=== PATIENT | female | born 1945 | race Caucasian/White ===

== ENCOUNTER → 2019-05-12 15:31 | Outpatient (BNVA) | payer MEDICARE, OTHER, SELFPAY | PROVIDERS: Family Provider Family Medicine; PCP Family Medicine; Visit Provider Internal Medicine Rheumatology | DX: M35.3 Polymyalgia rheumatica (principal); Z79.899 Other long term (current) drug therapy; Z11.59 Encounter for screening for other viral diseases; M19.90 Unspecified osteoarthritis, unspecified site; M05.9 Rheumatoid arthritis with rheumatoid factor, unspecified; R76.8 Other specified abnormal immunological findings in serum | CPT/HCPCS: 36415; 82306; 86704; 86803; 87340; 99214 ==

== ENCOUNTER → 2019-06-17 12:50 | Outpatient (BNVA) | payer MEDICARE, OTHER, SELFPAY | PROVIDERS: Family Provider Family Medicine; PCP Family Medicine; Visit Provider Internal Medicine Rheumatology | DX: Z79.899 Other long term (current) drug therapy (principal); M19.90 Unspecified osteoarthritis, unspecified site | CPT/HCPCS: 36415; 80076; 82565; 85025; 85651; 86140 ==

== ENCOUNTER → 2019-06-17 13:03 | Outpatient (BNVA) | payer MEDICARE, OTHER, SELFPAY | PROVIDERS: Family Provider Family Medicine; PCP Family Medicine | DX: Z79.899 Other long term (current) drug therapy (principal); M19.90 Unspecified osteoarthritis, unspecified site | CPT/HCPCS: 85025 ==

== ENCOUNTER → 2019-08-18 13:01 | Outpatient (BNVA) | payer MEDICARE, OTHER, SELFPAY | PROVIDERS: Family Provider Family Medicine; PCP Family Medicine; Visit Provider Internal Medicine Rheumatology | DX: M35.3 Polymyalgia rheumatica (principal); Z79.899 Other long term (current) drug therapy; Z79.52 Long term (current) use of systemic steroids; M25.50 Pain in unspecified joint | CPT/HCPCS: 36415; 80076; 82565; 85025; 85651; 86140; 99214 ==

== ENCOUNTER → 2020-01-21 14:15 | Outpatient (BNVA) | payer MEDICARE, OTHER, SELFPAY | PROVIDERS: Family Provider Family Medicine; PCP Family Medicine; Visit Provider Internal Medicine Rheumatology | DX: M35.3 Polymyalgia rheumatica (principal); Z79.899 Other long term (current) drug therapy; R76.8 Other specified abnormal immunological findings in serum; M06.09 Rheumatoid arthritis without rheumatoid factor, multiple sites | CPT/HCPCS: 99214 ==

== ENCOUNTER → 2020-02-19 10:09 | Outpatient (BNVA) | payer MEDICARE, OTHER, SELFPAY | PROVIDERS: Family Provider Family Medicine; PCP Family Medicine; Visit Provider Internal Medicine Rheumatology | DX: Z79.899 Other long term (current) drug therapy (principal) | CPT/HCPCS: 36415; 80076; 82565; 86140 ==

== ENCOUNTER 2021-03-01 09:43 | Outpatient (CLI) | payer MEDICARE, OTHER, SELFPAY | END 2021-03-01 09:44 | disposition home or self-care (01) | LOC: WOUND 09:45 | PROVIDERS: Family Provider Family Medicine; PCP Family Medicine; Visit Provider Nurse Practitioner Family | DX: I96 Gangrene, not elsewhere classified (principal); L97.812 Non-pressure chronic ulcer of other part of right lower leg with fat layer exposed; Z87.891 Personal history of nicotine dependence; M06.9 Rheumatoid arthritis, unspecified; I10 Essential (primary) hypertension | CPT/HCPCS: 11042; G0463 ==

== ENCOUNTER 2021-03-08 13:19 | Outpatient (RCR) | payer MEDICARE, OTHER, SELFPAY | END 2021-04-07 23:59 | disposition home or self-care (01) | LOC: WOUND 13:19 | PROVIDERS: Family Provider Family Medicine; PCP Family Medicine; Visit Provider Nurse Practitioner Family | DX: T81.89XA Other complications of procedures, not elsewhere classified, initial encounter (principal); Y83.8 Other surgical procedures as the cause of abnormal reaction of the patient, or of later complication, without mention of misadventure at the time of the procedure; I10 Essential (primary) hypertension; M06.9 Rheumatoid arthritis, unspecified; Z87.891 Personal history of nicotine dependence | CPT/HCPCS: 11042 ==

== ENCOUNTER 2021-03-15 14:14 | Outpatient (CLI) | payer MEDICARE, OTHER, SELFPAY | END 2021-03-15 14:15 | disposition home or self-care (01) | LOC: WOUND 14:15 | PROVIDERS: Family Provider Family Medicine; PCP Family Medicine; Visit Provider Thoracic Surgery (Cardiothoracic Vascular Surgery) | DX: I96 Gangrene, not elsewhere classified (principal); L97.812 Non-pressure chronic ulcer of other part of right lower leg with fat layer exposed; Z87.891 Personal history of nicotine dependence | CPT/HCPCS: 11043 ==

== ENCOUNTER 2021-03-22 10:53 | Outpatient (CLI) | payer MEDICARE, OTHER, SELFPAY | END 2021-03-22 10:54 | disposition home or self-care (01) | LOC: WOUND 10:54 | PROVIDERS: Family Provider Family Medicine; PCP Family Medicine; Visit Provider Thoracic Surgery (Cardiothoracic Vascular Surgery) | DX: I96 Gangrene, not elsewhere classified (principal); L97.812 Non-pressure chronic ulcer of other part of right lower leg with fat layer exposed | CPT/HCPCS: 11043 ==

== ENCOUNTER 2021-03-28 14:31 | Outpatient (CLI) | payer MEDICARE, OTHER, SELFPAY | END 2021-03-28 14:32 | disposition home or self-care (01) | LOC: WOUND 14:32 | PROVIDERS: Family Provider Family Medicine; PCP Family Medicine; Visit Provider Nurse Practitioner Family | DX: Y83.8 Other surgical procedures as the cause of abnormal reaction of the patient, or of later complication, without mention of misadventure at the time of the procedure; Z87.891 Personal history of nicotine dependence; I10 Essential (primary) hypertension; T81.31XA Disruption of external operation (surgical) wound, not elsewhere classified, initial encounter | CPT/HCPCS: 11042; A6212 ==

== ENCOUNTER 2021-04-10 13:36 | Outpatient (CLI) | payer MEDICARE, OTHER, SELFPAY | END 2021-04-10 13:37 | disposition home or self-care (01) | LOC: WOUND 13:37 | PROVIDERS: Family Provider Family Medicine; PCP Family Medicine; Visit Provider Thoracic Surgery (Cardiothoracic Vascular Surgery) | DX: I96 Gangrene, not elsewhere classified (principal); S80.811A Abrasion, right lower leg, initial encounter; X58.XXXA Exposure to other specified factors, initial encounter; Z87.891 Personal history of nicotine dependence | CPT/HCPCS: 97597; A6212 ==

== ENCOUNTER 2021-04-17 10:52 | Outpatient (CLI) | payer MEDICARE, OTHER, SELFPAY | END 2021-04-17 10:53 | disposition home or self-care (01) | LOC: WOUND 10:59 | PROVIDERS: Family Provider Family Medicine; PCP Family Medicine; Visit Provider Thoracic Surgery (Cardiothoracic Vascular Surgery) | DX: T86.829 Unspecified complication of skin graft (allograft) (autograft) (principal); X58.XXXA Exposure to other specified factors, initial encounter; I10 Essential (primary) hypertension; M06.9 Rheumatoid arthritis, unspecified; Z87.891 Personal history of nicotine dependence | CPT/HCPCS: 11042; A6250 ==

== ENCOUNTER → 2021-10-12 10:13 | Outpatient (BNVA) | payer MEDICARE, OTHER, SELFPAY | PROVIDERS: Family Provider Family Medicine; PCP Family Medicine; Visit Provider Podiatrist Foot & Ankle Surgery | DX: L85.1 Acquired keratosis [keratoderma] palmaris et plantaris (principal); R26.89 Other abnormalities of gait and mobility; M79.672 Pain in left foot | CPT/HCPCS: 99204 ==

== ENCOUNTER → 2021-10-23 08:15 | Outpatient (BNVA) | payer MEDICARE, OTHER, SELFPAY | PROVIDERS: Family Provider Family Medicine; PCP Family Medicine; Visit Provider Podiatrist Foot & Ankle Surgery | DX: S92.345A Nondisplaced fracture of fourth metatarsal bone, left foot, initial encounter for closed fracture (principal); L84 Corns and callosities; X58.XXXA Exposure to other specified factors, initial encounter; M79.672 Pain in left foot | CPT/HCPCS: 73630; 99214 ==

== ENCOUNTER 2021-10-23 11:33 | Outpatient (CLI) | payer MEDICARE, OTHER, SELFPAY | END 2021-10-23 11:34 | disposition home or self-care (01) | LOC: SPT 11:33 | PROVIDERS: Family Provider Family Medicine; PCP Family Medicine; Visit Provider Podiatrist Foot & Ankle Surgery | DX: Z46.89 Encounter for fitting and adjustment of other specified devices (principal); S92.342D Displaced fracture of fourth metatarsal bone, left foot, subsequent encounter for fracture with routine healing; X58.XXXD Exposure to other specified factors, subsequent encounter | CPT/HCPCS: 97760; L4361 ==

== ENCOUNTER → 2021-11-07 13:39 | Outpatient (BNVA) | payer MEDICARE, OTHER, SELFPAY | PROVIDERS: Family Provider Family Medicine; PCP Family Medicine; Visit Provider Podiatrist Foot & Ankle Surgery | DX: S92.345D Nondisplaced fracture of fourth metatarsal bone, left foot, subsequent encounter for fracture with routine healing; X58.XXXD Exposure to other specified factors, subsequent encounter; L84 Corns and callosities | CPT/HCPCS: 73630; 99213 ==

== ENCOUNTER → 2021-12-14 11:28 | Outpatient (BNVA) | payer MEDICARE, OTHER, SELFPAY | PROVIDERS: Family Provider Family Medicine; PCP Family Medicine; Visit Provider Podiatrist Foot & Ankle Surgery | DX: L84 Corns and callosities (principal); X58.XXXA Exposure to other specified factors, initial encounter; S92.342A Displaced fracture of fourth metatarsal bone, left foot, initial encounter for closed fracture | CPT/HCPCS: 73630; 99213; 99214 ==

== ENCOUNTER → 2022-01-11 08:46 | Outpatient (BNVA) | payer MEDICARE, OTHER, SELFPAY | PROVIDERS: Family Provider Family Medicine; PCP Family Medicine; Visit Provider Podiatrist Foot & Ankle Surgery | DX: S92.342D Displaced fracture of fourth metatarsal bone, left foot, subsequent encounter for fracture with routine healing (principal); X58.XXXA Exposure to other specified factors, initial encounter; L84 Corns and callosities; R26.89 Other abnormalities of gait and mobility | CPT/HCPCS: 73630; 99214 ==

== ENCOUNTER → 2022-01-17 14:45 | Outpatient (BNVA) | payer MEDICARE, OTHER, SELFPAY | PROVIDERS: Family Provider Family Medicine; PCP Family Medicine; Visit Provider Surgery | DX: K76.6 Portal hypertension (principal); K80.20 Calculus of gallbladder without cholecystitis without obstruction | CPT/HCPCS: 99203 ==

== ENCOUNTER 2022-01-29 06:37 | Outpatient (CLI) | payer MEDICARE, OTHER, SELFPAY ==
[2022-01-29 07:49] LABS: Blood Urea Nitrogen 25 mg/dL (8-23)
[2022-01-29] MEDS: iohexol 350 mg/mL 100 mL Btl IV (07:55)
--- NOTE | 2022-01-29 08:00 | CT_ITS ---
WS: [id number] CT ABDOMEN AND PELVIS WITH CONTRAST HISTORY: Rule out Portal Hypertension TECHNIQUE: Imaging performed of the abdomen and pelvis with IV contrast. Single phase imaging of the abdomen. Coronal and sagittal reformats are submitted. All CT scans at [facility] use at [address] one of these dose optimization techniques: automated exposure control; mA and/or kV adjustment per patient size (includes targeted exams where dose is matched to clinical indication); or iterative re construction. IV CONTRAST: Omnipaque 350; 95 mL IV. Oral contrast: No DLP: 1144.20 mGy.cm COMPARISON: Gallbladder ultrasound 01/02/2022. Lower thorax: Lung bases are clear. Mild LEFT heart enlargement. No pericardial effusion. Small hiata l hernia. Very slight elevation of the LEFT hemidiaphragm. Partially visualized RIGHT breast implant. Liver/biliary system: Top normal size liver 17 cm in length. Too small to characterize 4 mm low-atte nuation focus in the RIGHT lobe. No bile duct dilatation. The portal vein is normal. Gallbladder: Normally distended gallbladder. Numerous stones are identified within the lumen. No cassandra cent inflammation. Pancreas: Normal size pancreas. No pancreatic duct dilatation. Common bile duct at the pancreatic hea d is 5.1 mm. Spleen: Small shrunken spleen. Adrenal glands: Normal RIGHT adrenal gland. Low-attenuation mass in the LEFT adrenal gland with negat kenneth Hounsfield units. Lipid-containing mass measures 2.2 x 2.1 cm. Consistent with a benign adenoma. Right kidney: Normal size kidney. There are a few scattered areas of decreased attenuation in the cor sree. The largest is a small cyst in the upper pole measuring 9 mm. The remaining are too small to aaron racterize. No hydronephrosis. Left kidney: Mild cortical thinning upper pole. There are a few scattered low-attenuation cortical le sions which are too small to characterize. No solid mass identified. No obstruction. Aorta: Diffuse scattered plaque and intimal thickening. No aneurysm. Mild atherosclerosis at the orig in of the celiac axis and SMA. Small caliber RIGHT renal artery. There is an accessory RIGHT renal ar jordi also. No ischemic renal changes. Lymphadenopathy: None. Free fluid: None. GI tract: Stomach is not distended with contrast. No oral contrast was given. No small bowel obstruct ion. Diffuse mild constipation with overlapping loops of the GI tract. The appendix is not identified . Abdominal wall: Unremarkable abdominal wall. No hernia. Pelvis: Prior hysterectomy. No free fluid or adenopathy. LEFT adnexal cyst measures 11 x 11 mm. Assoc iated with the LEFT ovarian suspensory ligament. This is probably a small residual ovary or an ovaria n remnant. Bones: Prior ORIF LEFT hip. Mild degenerative disc disease. CT/CT abdomen pelvis w con* [id number] IMPRESSION: 1. Cholelithiasis without evidence for acute cholecystitis. No bile duct dilat ation. 2. Normal portal vein. No secondary findings of portal hypertension. 3. Small atrophic spleen. 4. The liver is top normal size. No mass or bile duct dilatation. 5. Atherosclerosis aorta. 6. Small RIGHT renal artery with an adjacent accessory renal artery. No ischem ic changes. 7. No adenopathy or ascites.
== END 2022-01-29 06:38 | disposition home or self-care (01) ==
LOC: RAD 06:37
PROVIDERS: Family Provider Family Medicine; PCP Family Medicine; Visit Provider Surgery
DX: K76.6 Portal hypertension (principal); K80.20 Calculus of gallbladder without cholecystitis without obstruction; D73.0 Hyposplenism; I25.10 Atherosclerotic heart disease of native coronary artery without angina pectoris; S92.342A Displaced fracture of fourth metatarsal bone, left foot, initial encounter for closed fracture; X58.XXXA Exposure to other specified factors, initial encounter; L84 Corns and callosities; R26.89 Other abnormalities of gait and mobility
CPT/HCPCS: 74177; 82565; 84520; 99214

== ENCOUNTER 2022-02-05 08:36 | Day surgery (SDC) | payer MEDICARE, OTHER, SELFPAY ==
[2022-02-02 14:29] VITALS: BMI 25.8
[2022-02-05] VITALS (11 sets, daily range): BP systolic 127–157; BP diastolic 63–97; PULSE 47–71; RESP 16–24; TEMP 36.2–36.6; O2SAT 90–100; BMI 25.0
--- NOTE | 2022-02-05 08:31 | W.PM.OPSUD ---
Surgery/Procedure H&P Update DATE OF PROCEDURE: February 05, 2022 DATE H&P PERFORMED: 01/17/22 H&P UPDATE INFORMATION: I have reviewed H&P completed within last 30 days, I have examined patient prior to procedure and Changes to prior documentation as noted here (CT scan findings showed no evidence of portal hypertension.) PRIMARY INDICATION FOR PROCEDURE: The same PLANNED PROCEDURE: Operation Date: 02/05/22 10:10 Proposed Procedures p Laparoscopic Cholecystectomy 87516,K82.9(Not Applicable) - Luis Connor MD
[2022-02-05] MEDS: acetaminophen 1,000 MG/100 ML PIGGYBACK 400 MG IV (09:30)
[2022-02-05] MEDS: sodium chloride 0.9% 1,000 ML 30 ML IV (09:44)
[2022-02-05] MEDS: heparin 5,000 unit/mL INJ 1 mL 3000 UNIT SUBCUT (09:45)
--- NOTE | 2022-02-05 09:55 | P.ANESASSM_ITS ---
Pre-Anesthetic Assessment Height/Weight: Height 1.7 m Weight 72.575 kg Temp Pulse Resp BP Pulse Ox O2 Del Method 97.8 F 71 18 127/77 94 02/05/22 09:00 02/05/22 09:00 02/05/22 09:00 02/05/22 09:00 02/05/22 09:00 02/05/22 09:04 Preop Diagnosis: Symptomatic cholelithiasis Operation Date: 02/05/22 10:10 Proposed Procedures p Laparoscopic Cholecystectomy 62258,K82.9(Not Applicable) - Luis Connor MD Familial anesthetic complications: None Was Beta Heather taken within 24 hours: N/A Was Clonidine taken within 24 hours: N/A Last intake: > 8hrs Social No alcohol and No tobacco Exam alert, oriented x 3, clear to auscultation bilaterally and regular rate & rhythm Airway Mallampati: Class II Dentition: other (missing) Pulmonary None reported CV/HEM Hypertension achieves > 4 METS Hepatic ? fatty liver Metabolic Thyroid Disease [facility] [place]/skel polymyalgia rheumatica Anesthetic Plan ASA status: 3 Anesthesia: General Risk of > 500 ml blood loss (7ml/kg in children): No Medications/Allergies Home Medications Medication Instructions Recorded Confirmed Last Taken Type hydrochlorothiazide 25 mg tablet 25 mg PO DAILY 05/11/19 02/05/22 02/04/22 History ibuprofen 100 mg tablet 200 mg PO QID PRN Pain 05/11/19 02/02/22 Unknown History levothyroxine 50 mcg capsule 50 mcg PO DAILY 05/11/19 02/05/22 02/04/22 History lisinopril 5 mg tablet 5 mg PO DAILY 05/11/19 02/05/22 02/04/22 History loratadine 10 mg tablet 10 mg PO DAILY 05/11/19 02/05/22 02/04/22 History sumatriptan succinate 100 mg 100 mg PO Q2H PRN Migraine Headache 05/11/19 02/05/22 02/04/22 History tablet (Imitrex) tramadol 50 mg tablet (Ultram) 50 mg PO DAILY 05/11/19 02/05/22 02/05/22 History diclofenac sodium 1 % topical gel 2 gm topical QID PRN Pain 08/18/19 02/02/22 Unknown History meloxicam 7.5 mg tablet 7.5 mg PO DAILY 01/17/22 02/05/22 02/04/22 History mupirocin 2 % topical ointment 1 applic topical BID 2 weeks #22 01/29/22 02/05/22 02/04/22 Rx grams AFO to the Left #1 ea 01/31/22 Unknown Rx Allergies Allergy/AdvReac Type Severity Reaction Status Date / Time alendronate sodium AdvReac unknown Verified 01/29/22 10:25 [From Fosamax] prochlorperazine AdvReac unknown Verified 01/29/22 10:25 [From Compazine] Current Medications Generic Name Dose Route Start Last Admin Trade Name Freq PRN Reason Stop Dose Admin Sodium Chloride 1,000 mls @ 30 mls/hr 02/05/22 08:45 02/05/22 09:44 Sodium Chloride 0.9% IV 02/06/22 08:44 30 mls/hr .Q24H CARLEEN Administration PFSH Anesthesia Medical History Encounter for screening for other viral diseases High risk medication use Immunization counseling Polymyalgia rheumatica Positive SAMANTHA (antinuclear antibody) Surgical History History of hysterectomy History of thyroidectomy Family History Son Hypertension Brother Diabetes Father Heart disease Mother Cancer Sister Cancer Social History Smoking and tobacco status: never smoked Alcohol intake: never Data Anesthesia Cardiac Studies: No Data to Display
[2022-02-05] MEDS: ampicillin-sulbactam 3 GM in sodium chloride 0.9% (plus) 50 ML IV (10:08)
[2022-02-05] MEDS: lidocaine 1% INJ 50 mL 10 ML INJECTION (10:27)
[2022-02-05 10:36] LABS: Anion Gap 12.8 (5-19); Blood Urea Nitrogen 21 mg/dL (8-23); Calcium 9.8 mg/dL (8.5-10.5); Carbon Dioxide 30 mmol/L (22-29); Chloride 100 mmol/L (98-107); Glucose 82 mg/dL (65-115); Osmolality Calculated 290 mOsm/kg (285-295); Potassium 3.8 mmol/L (3.5-5.1); Sodium 139 mmol/L (136-145)
--- NOTE | 2022-02-05 11:54 | PM.OP ---
Operative Report Date of procedure: February 05, 2022 Pre-op diagnosis: Preop Diagnosis Symptomatic cholelithiasis Post-op diagnosis: Extensive intra-abdominal adhesions Chronic calculus cholecystitis Fatty liver Procedure done: 1-Laparoscopic extensive adhesiolysis 2-Laparoscopic cholecystectomy Implants: Surgicel at the gallbladder fossa Specimens removed/disposition: Gallbladder and contents Surgeon: Luis Connor MD Switch Operators Supervisor: Surgical techmarie Fonseca Circulating nurse Neelima Anesthesia: General (MIXER PIGMENT Zachery Nassar) Estimated blood loss (mL): 20 IV fluids (mL): 800 Procedure: Patient was identified in the holding area and taken back to the operative suite, placed in supine position intubated by anesthesia . Time-out was done verifying the patient's name/date of /planned procedure and destination after the procedure, all were in agreement. SCDs confirmed to be functioning, preoperative antibiotics administered per protocol, and beta kervin protocol was confirmed. Patient was appropriately secured to the table, footboard was applied to the OR table, before prep and drape anesthesia was asked to tilt the table back and forth to make sure that the patient is appropriately secured and she was. Prep and drape of the abdomen was done under the usual sterile technique, followed by that right upper quadrant 5 mm Optiview inserted with a 0 degree 5 mm scope creating skin incision at the right subcostal midclavicular line. Safe entrance to the abdominal cavity was achieved followed by gas insufflation. That was switched to 30 degree 5 mm scope and there was no evidence of injuries or bleeding. As expected there was extensive intra-abdominal adhesions towards the midline.I Elected to add additional far lateral 5 mm trocar under direct visualization then a Kohler trocar was inserted via an infraumbilical incision again under direct visualization. Laparoscopic extensive adhesiolysis was achieved using Voyant device and also sharp dissection was achieved using laparoscopic scissors at that point all adhesions were taken down under direct visulaization and did take more than an hour of the operative time. Now attention was deviated towards the gallbladder. A balloon tiped 5 mm trocar was inserted in the epigastric region under direct visualization Gallbladder showed chronic cholecystitis and Fatty Liver Patient was then positioned in the head up and tilted to the left. Ratcheted forceps were introduced into the lateral most 5mm port and was applied unto the fundus of the gallbladder cephalad and using Bullet forceps the infundibulum of the gallbladder was retracted laterally. Using [place] forceps then L-hook cautery to dissect the peritoneum overlying the Calot's triangle which was then opened medially and laterally until the cystic duct and the cystic artery were skeletonized. Dissection was carried along the body of the gallbladder and after ensuring critical view of safety was identfied. Cystic duct and cystic artery where seen connected to the gallbladder. Clips were applied on the cystic duct towards the common bile duct 1 towards the gallbladder then divided is in sharp scissors, 2 clips were then applied onto the cystic artery and 1 towards the gallbladder and divided by sharp scissors. Dissection was then carried along of the gallbladder from the gallbladder fossa using cautery as well as sharp dissection with heat energy. The gallbladder then was dissected out from the gallbladder fossa totally , cholecystectomy was then achieved and was placed in an Endo Catch bag and then retrieved from the Kohler trocar site under direct visualization using a 5 mm 30? scope through the epigastric trocar, specimen was then passed to the circulating nurse to go for permanent pathology,irrigation and hemostasis was done to the gallbladder fossa after hemostasis was secured, pieces of Surgicel were applied at the gallbladder fossa. Final survey laparoscopy was done that showed no injuries. Suction/ irrigation was obtained. The infraumbilical fascial defect was then closed using interrupted number one PDS sutures using a fascial closure device ;Peter Nair under direct visualization following that Gas was allowed to deflate,Trocars were then taken out under direct vision there was no evidence of bleeding. Specimen was passed to the circulating nurse for permanent pathology. No drains were placed and the infra umbilical incision as well as all trocar sites were closed by 3/0 Vicryl followed by skin uzair to approximate the skin edges of the incisions,dressing was applied in the form of Band-Aids and the patient patient got extubated and was taken to recovery area in a stable condition. Count of sponges,needles and instruments were completed at the end of the procedure I was present for the whole entire procedure.
[2022-02-05] MEDS: fentaNYL 50 mcg/mL INJ 2mL IVP (12:10)
--- NOTE | 2022-02-05 12:17 | SUR.PHASEI ---
1156 PT TO PACU RESTLESS AWAKES BUT DOES NOT VERBALIZE OR FOLLOW COMMANDS, PT ROLLING SIDE TO SIDE, ABDOMEN SOFT WITH 4 SITES WITH BANDAIDS D/I BILAT SCDS ON, IV TO RT AC #20 WITH NS AT KVO RATE PER GRAVITY 200 ML UP. ID BANDS TO RT WRIST, PT ID'D WITH 2 IDENTIFIERS. 1210 PT CRYING OUT WITH PAIN, PT MORE ALERT KNOWS NAME AND THAT SHE HAD SURGURY, UNABLE TO GIVE NUMBER TO PAIN BUT TEARFUL AND MOANING, PT TO RT SIDE TO COMFORT WITH WARM BLANKETS X 3 SEE PAIN MED GIVEN.
[2022-02-05] MEDS: HYDROcodone-acetaminophen 5-325 mg Tablet 1 TAB PO (13:18)
--- NOTE | 2022-02-05 13:48 | ANE.PACU2 ---
Inpatient post-anesthesia follow up: Airway intact: Yes Vital signs: Temperature 97.7 F Pulse Rate 52 Respiratory Rate 18 Blood Pressure 134/67 Pulse Oximetry 95 Oxygen Delivery Me thod Room Air Oxygen Flow Rate 8 Fraction of Inspir ed Oxygen Hydration adequate: Yes Nausea and vomiting: No Pain level: 1 Mental status: Baseline
== END 2022-02-05 12:35 | disposition home or self-care (01) ==
PROVIDERS: Anesthesiology; PCP Family Medicine; Visit Provider Surgery
PROC: 0FT44ZZ Resection of Gallbladder, Percutaneous Endoscopic Approach (ICD-10-PCS; CPT 47562; principal; 2022-02-05 10:00)
PROC: (CPT 47562; 2022-02-05 10:00)
DX: K80.10 Calculus of gallbladder with chronic cholecystitis without obstruction (principal); I10 Essential (primary) hypertension; K76.0 Fatty (change of) liver, not elsewhere classified; K66.0 Peritoneal adhesions (postprocedural) (postinfection)
CPT/HCPCS: 47562; 36415; 80048; 88304; J0131; J0295; J1100; J1644; J2405; J2704; J3010; J3490; J7030

== ENCOUNTER → 2022-02-14 09:42 | Outpatient (BNVA) | payer MEDICARE, OTHER, SELFPAY | PROVIDERS: PCP Family Medicine; Visit Provider Surgery | DX: Z98.890 Other specified postprocedural states (principal); Z90.49 Acquired absence of other specified parts of digestive tract | CPT/HCPCS: 99024 ==

== ENCOUNTER → 2022-02-26 09:40 | Outpatient (BNVA) | payer MEDICARE, OTHER, SELFPAY | PROVIDERS: PCP Family Medicine; Visit Provider Podiatrist Foot & Ankle Surgery | DX: L84 Corns and callosities (principal); R26.89 Other abnormalities of gait and mobility; X58.XXXA Exposure to other specified factors, initial encounter; S92.342A Displaced fracture of fourth metatarsal bone, left foot, initial encounter for closed fracture | CPT/HCPCS: 73630; 99214 ==

== ENCOUNTER → 2022-03-15 13:50 | Outpatient (BNVA) | payer MEDICARE, OTHER, SELFPAY | PROVIDERS: PCP Family Medicine; Visit Provider Surgery | DX: Z48.89 Encounter for other specified surgical aftercare (principal) | CPT/HCPCS: 99024 ==

== ENCOUNTER → 2022-03-19 10:59 | Outpatient (BNVA) | payer MEDICARE, OTHER, SELFPAY | PROVIDERS: PCP Family Medicine; Visit Provider Podiatrist Foot & Ankle Surgery | DX: L84 Corns and callosities (principal); R26.89 Other abnormalities of gait and mobility; S92.345D Nondisplaced fracture of fourth metatarsal bone, left foot, subsequent encounter for fracture with routine healing; X58.XXXD Exposure to other specified factors, subsequent encounter | CPT/HCPCS: 99213 ==

== ENCOUNTER → 2022-04-04 10:33 | Outpatient (BNVA) | payer MEDICARE, OTHER, SELFPAY | PROVIDERS: PCP Family Medicine; Visit Provider Podiatrist Foot & Ankle Surgery | DX: L84 Corns and callosities (principal); R26.89 Other abnormalities of gait and mobility | CPT/HCPCS: 99214 ==

== ENCOUNTER → 2022-06-25 09:57 | Outpatient (BNVA) | payer OTHER, SELFPAY | PROVIDERS: PCP Family Medicine; Visit Provider Podiatrist Foot & Ankle Surgery | DX: R26.89 Other abnormalities of gait and mobility (principal); M20.41 Other hammer toe(s) (acquired), right foot; M20.42 Other hammer toe(s) (acquired), left foot | CPT/HCPCS: 73650 ==

== ENCOUNTER 2022-07-25 14:02 | Outpatient (CLI) | payer OTHER, SELFPAY ==
[2022-07-25 15:11] LABS: Anion Gap 14.8 (5-19); Blood Urea Nitrogen 27 mg/dL (8-23); Calcium 9.4 mg/dL (8.5-10.5); Carbon Dioxide 27 mmol/L (22-29); Chloride 97 mmol/L (98-107); Glucose 146 mg/dL (65-115); Osmolality Calculated 288 mOsm/kg (285-295); Potassium 3.8 mmol/L (3.5-5.1); Sodium 135 mmol/L (136-145)
== END 2022-07-25 14:03 | disposition home or self-care (01) ==
PROVIDERS: PCP Family Medicine; Visit Provider Thoracic Surgery (Cardiothoracic Vascular Surgery)
DX: S81.802A Unspecified open wound, left lower leg, initial encounter (principal); X58.XXXA Exposure to other specified factors, initial encounter
CPT/HCPCS: 36415; 80048

== ENCOUNTER → 2022-08-30 13:42 | Outpatient (BNVA) | payer OTHER, SELFPAY | PROVIDERS: PCP Family Medicine; Referring Provider Registered Nurse; Visit Provider Orthopaedic Surgery | DX: M50.30 Other cervical disc degeneration, unspecified cervical region (principal) | CPT/HCPCS: 72050 ==

== ENCOUNTER 2022-11-02 12:47 | Outpatient (CLI) | payer OTHER, SELFPAY ==
--- NOTE | 2022-11-02 13:21 | USCV_ITS ---
Stacy Hester Age: 77 Gender: F : 1945 Exam Date: 11/02/2022 13:47 Ordering Phys: Mell Aguilar Technologist: PRANAV Exam Location: [facility] [place] Indication: HTN, SHORTNESS OF BREATH BP: 133 / 90 HR: 76 Rhythm: Sinus Technical Quality: Adequate MEASUREMENTS (Male / Female) Normal Values 2D ECHO LVOT Diameter 2.0 cm LV Ejection Fraction MOD 2C 65.2 % LV Ejection Fraction 2C AL 66.1 % LA Diameter 3.3 cm LA Width 3.5 cm LA Height 5.8 cm RA Width 4.1 cm RA Height 5.7 cm Aorta at Sinotubular Diameter 2.5 cm IVC Diameter 1.5 cm M-MODE Aortic Annulus Diameter 3.4 cm LA Ao Ratio MM 1.0 MV E Point Septal Separation 0.7 cm DOPPLER AV Peak Velocity 193.3 cm/s LVOT Peak Velocity 176.0 cm/s AV Area Cont Eq vti 3.3 cm squared AV Area Cont Eq pk 2.9 cm squared MV Peak Velocity 137.0 cm/s MV Area PHT 2.7 cm squared Mitral E to A Ratio 0.8 MV E' Velocity 54.0 cm/s Mitral E to MV E' Ratio 13.8 Mitral E to LV E' Lateral Ratio 14.2 Mitral E to LV E' Septal Ratio 13.6 TR Peak Velocity 164.6 cm/s TR Peak Gradient 10.8 mmHg TR Mean Velocity 139.0 cm/s TR Mean Gradient 7.8 mmHg TR Velocity Time Integral 45.2 cm TV Peak E Velocity 58.0 cm/s Right Atrial Pressure 3.0 mmHg Pulmonary Artery Systolic Pressu 13.8 mmHg PV Peak Velocity 104.0 cm/s RV Acceleration Time 0.1 s RV Ejection Time 0.3 s RV AcT/ET 0.4 FINDINGS Left Ventricle Left ventricle is normal in size. LV systolic function is normal with EF of 55 to 60%. No regional wall motion abnormalities are seen. Grade 1 diastolic dysfunction Right Ventricle Normal size and function Right Atrium Normal in size Left Atrium Dilated Mitral Valve Structurally normal mitral valve. Mild mitral regurgitation Aortic Valve Structurally normal aortic valve. No significant stenosis or regurgitation Tricuspid Valve Mild tricuspid regurgitation. Pulmonary artery systolic pressure is normal. Pulmonic Valve Not well visualized Pericardium Normal Aorta Normal in size IVC Appears to be normal CONCLUSIONS LV systolic function is normal with EF 55 to 60%. Grade 1 diastolic dysfunction Left atrial dilation Mild mitral regurgitation Mild tricuspid regurgitation Compared to prior echocardiogram from 2016, no significant changes are seen. Tanner Lund MD (Electronically Signed) Final Date: 02 November 2022 15:06 S
== END 2022-11-02 12:48 | disposition home or self-care (01) ==
PROVIDERS: PCP Family Medicine; Visit Provider Registered Nurse
DX: I08.1 Rheumatic disorders of both mitral and tricuspid valves (principal); I10 Essential (primary) hypertension; R06.02 Shortness of breath
CPT/HCPCS: 93306

== ENCOUNTER 2023-01-04 07:49 | Outpatient (CLI) | payer MEDICARE, OTHER, SELFPAY ==
--- NOTE | 2023-01-04 07:54 | CT_ITS ---
WS: [id number] CT ANGIOGRAPHY OF THE LEFT lower extremity, attention to the distal arteries. HISTORY: SKIN ULCER OF LEFT HEEL W/NECROSIS OF MUSCLE/PAD TECHNIQUE: Arterial injection is performed during imaging to evaluate the aorta and runoff vessels to the ankles. MIP and volume rendering imaging has also been performed. All images are reviewed. All C T scans at [facility] use at least one of these dose optimization techniques: automated exposu re control; mA and/or kV adjustment per patient size (includes targeted exams where dose is matched t o clinical indication); or iterative reconstruction. Contrast: Omnipaque 350; 100 mL IV. DLP: 803.74 mGy.cm COMPARISON: None available. CT angiogram is performed of the LEFT lower extremity with attention to the plantar arch. Delayed taz ging was also performed with 1 mm imaging. Beginning at the level of the knee there is good arterial opacification. The popliteal artery is norm al. Normal branching into the anterior tibioperoneal trunk. Posterior tibial artery and the peroneal arteries also branch normally. There is robust arterial enhancement through the mid tibia. Decreased flow from the mid tibia distally in the peroneal artery. Anterior and posterior tibial arteries remai n normal size. Anterior tibial artery appears normal and extends to the plantar arch. There is good contrast opacification in the posterior tibial artery around the medial calcaneus. Maximilian g the medial calcaneus there is branching towards the medial and lateral plantar arteries. Although s mall caliber of the lateral plantar artery appears intact. There is loss of flow in the proximal medi al plantar artery. On the delayed imaging cannot confirm any significant amount of flow in the planta r medial plantar artery distally. Also identified is marked soft tissue thickening and air over the posterior calcaneus and along the p lantar surface of the foot at the level of the calcaneus. There is a soft tissue ulceration which alvarez s extend to the bony surface. There is no obvious osteolysis or destruction of the calcaneus. As per history patient is undergone a prior calcaneal resection. There is a focal area of increased sclerosi s in the lateral calcaneus measuring 10 x 16 mm. IMPRESSION: 1. Cannot confirm opacification and contrast enhancement through the mid to distal LEFT medial planta r artery. There is loss of contrast in the distal plantar artery to the plantar arch. The plantar arc h does enhance due to the opacification via the anterior and lateral plantar artery. 2. Soft tissue ulceration with air along the plantar surface of the calcaneus. Consistent with the kn own ulceration. No underlying osteomyelitis or osteolysis of the calcaneus identified. 3. Poor flow to the ankle via the LEFT peroneal artery.
[2023-01-04 08:41] LABS: Blood Urea Nitrogen 19 mg/dL (8-23)
[2023-01-04] MEDS: iohexol 350 mg/mL 500 mL Btl (per mL) IV ×2 (09:02→09:03)
== END 2023-01-04 07:50 | disposition home or self-care (01) ==
PROVIDERS: PCP Plastic Surgery; Visit Provider Plastic Surgery
DX: L97.423 Non-pressure chronic ulcer of left heel and midfoot with necrosis of muscle (principal)
CPT/HCPCS: 73706; 82565; 84520; Q9967

== ENCOUNTER → 2023-01-07 14:09 | Outpatient (BNVA) | payer MEDICARE, OTHER, SELFPAY | PROVIDERS: PCP Plastic Surgery; Visit Provider Podiatrist Foot & Ankle Surgery | DX: R26.89 Other abnormalities of gait and mobility; M20.41 Other hammer toe(s) (acquired), right foot; M20.42 Other hammer toe(s) (acquired), left foot; L84 Corns and callosities; R09.89 Other specified symptoms and signs involving the circulatory and respiratory systems; L60.3 Nail dystrophy; I73.9 Peripheral vascular disease, unspecified | CPT/HCPCS: 11055; 11721 ==

== ENCOUNTER → 2023-06-10 10:39 | Outpatient (BNVA) | payer OTHER, SELFPAY | PROVIDERS: PCP Plastic Surgery; Visit Provider Podiatrist Foot & Ankle Surgery | DX: R26.89 Other abnormalities of gait and mobility (principal); M20.41 Other hammer toe(s) (acquired), right foot; M20.42 Other hammer toe(s) (acquired), left foot; L84 Corns and callosities; L60.3 Nail dystrophy; I73.9 Peripheral vascular disease, unspecified; R09.89 Other specified symptoms and signs involving the circulatory and respiratory systems | CPT/HCPCS: 11056; 11721 ==

== ENCOUNTER → 2023-06-28 13:52 | Outpatient (BNVA) | payer OTHER, SELFPAY | PROVIDERS: PCP Plastic Surgery; Referring Provider Family Medicine; Visit Provider Specialist | DX: G56.01 Carpal tunnel syndrome, right upper limb (principal) | CPT/HCPCS: 95911 ==

== ENCOUNTER → 2023-10-16 08:45 | Outpatient (BNVA) | payer OTHER, SELFPAY | PROVIDERS: PCP Plastic Surgery; Visit Provider Podiatrist Foot & Ankle Surgery | DX: R26.89 Other abnormalities of gait and mobility (principal); M20.41 Other hammer toe(s) (acquired), right foot; M20.42 Other hammer toe(s) (acquired), left foot; L84 Corns and callosities; L60.3 Nail dystrophy; I73.9 Peripheral vascular disease, unspecified; R09.89 Other specified symptoms and signs involving the circulatory and respiratory systems | CPT/HCPCS: 11055; 11721 ==

== ENCOUNTER 2023-12-13 11:34 | Emergency (ER) | payer OTHER, SELFPAY ==
[2023-12-13 12:51] VITALS: BP 129/74; PULSE 79; RESP 16; TEMP 36.7; O2SAT 94; BMI 27.3
--- NOTE | 2023-12-13 13:34 | W.ED.UPPEXIN ---
HPI - Extremity Injury (Upper) General: Chief Complaint: Extremity Injury, Upper Stated Complaint: broken arm Time Seen by Provider: 12/13/23 13:31 Source: patient Mode of arrival: ambulatory Limitations: no limitations History of Present Illness: Patient is a nice 78-year-old female who presents to ED today for evaluation of a known fracture to her right forearm/wrist. Patient states earlier this week she tripped and fell. She was subsequently seen at [facility] and diagnosed with a fracture. She was given follow-up information for [facility]. Patient states she was contacted by them today and has an appointment to see Dr. Vazquez on Saturday 12/16 but would like to make sure that her fracture is stable enough to wait that long. She states she is doing well in her splint. MD complaint: injury to: right, forearm and wrist Onset (ago): day(s) Other Extremity Injury: Right: wrist Other injuries: none Place: home Severity: moderate Relieving factors: immobilization Context: fall Associated symptoms: Reports no associated symptoms Related Data Home Medications Medication Instructions Recorded Confirmed hydrochlorothiazide 25 mg tablet 25 mg PO DAILY 05/11/19 10/16/23 ibuprofen 100 mg tablet 200 mg PO QID PRN Pain 05/11/19 10/16/23 levothyroxine 50 mcg capsule 50 mcg PO DAILY 05/11/19 10/16/23 lisinopril 5 mg tablet 5 mg PO DAILY 05/11/19 10/16/23 loratadine 10 mg tablet 10 mg PO DAILY 05/11/19 10/16/23 sumatriptan succinate 100 mg 100 mg PO Q2H PRN Migraine Headache 05/11/19 10/16/23 tablet (Imitrex) tramadol 50 mg tablet (Ultram) 50 mg PO DAILY 05/11/19 10/16/23 diclofenac sodium 1 % topical gel 2 gm topical QID PRN Pain 08/18/19 10/16/23 meloxicam 7.5 mg tablet 7.5 mg PO DAILY 01/17/22 10/16/23 Previous Rx's Medication Instructions Recorded AFO to the Left #1 ea 01/31/22 hydrocodone 5 mg-acetaminophen 325 1 tab PO Q6H PRN pain #28 tabs 02/05/22 mg tablet cadexomer iodine 0.9 % topical gel 40 g topical Q3D #40 grams 05/22/22 (Iodosorb) silicone border foam dressing #1 ea 07/18/22 mupirocin 2 % topical ointment 1 applic topical BID #15 grams 08/08/22 mupirocin 2 % topical ointment 1 applic topical BID 2 weeks #22 09/05/22 grams silicone foam border, kerlex, tape #1 ea 01/07/23 Allergies Allergy/AdvReac Type Severity Reaction Status Date / Time alendronate sodium AdvReac unknown Verified 10/16/23 08:53 [From Fosamax] prochlorperazine AdvReac unknown Verified 10/16/23 08:53 [From Compazine] Review of Systems Musc: Reports: extremity pain and joint pain (R wrist) Neuro: Denies: numbness in extremities or sensory changes PFSH ED PFSH: Medical History Symptomatic cholelithiasis Positive SAMANTHA (antinuclear antibody) Immunization counseling Polymyalgia rheumatica High risk medication use Encounter for screening for other viral diseases Surgical History History of hysterectomy History of thyroidectomy Family History Son Hypertension Brother Diabetes Father Heart disease Mother Cancer Sister Cancer Social History Smoking and tobacco/nicotine status: never used tobacco/nicotine Alcohol intake: never Substance/Drug Use: never Physical Exam Const: COMMON NORMALS: no acute distress, average body habitus, patient oriented x3, no limitations, healthy appearing, alert and well nourished Extremity: COMMON NORMALS: capillary refill normal GENERAL: Yes normal exam except as noted RIGHT UPPER EXTREMITY: Yes lower arm and Yes wrist OTHER: splint removed; extremity NV intact; swelling/pain to distal radius; elbow non-tender Neuro: COMMON NORMALS: patient oriented x3, moves all extremities, no focal motor deficits and no sensory deficits noted SENSORIUM/ORIENTATION: Yes alert Course Vital Signs: Vital signs: Vital Signs Temperature 98.0 F 12/13/23 12:51 Pulse Rate 71 12/13/23 14:29 Respiratory Rate 16 12/13/23 12:51 Blood Pressure 107/65 12/13/23 14:29 Pulse Oximetry 95 12/13/23 14:29 Oxygen Delivery Me thod Room Air 12/13/23 12:51 MDM - Extremity Injury (Upper) Medical Decision Making Patient with a distal radial fracture. She will be placed in her splint again. She is stable to follow-up with Dr. Vazquez as scheduled on Saturday. Lab Data Radiology Impressions Forearm X-Ray 12/13/23 13:47 Impression: There is a nondisplaced fracture involving the radial styloid into the radiocarpal joint. I suspect there is widening of the scapholunate interval.. Wrist X-Ray 12/13/23 13:47 Impression: There is a minimally displaced distal radial fracture seen. All radiology interpretation(s) finalized by discharge Discharge Plan Discharge Patient Disposition: Home Clinical Impression: Closed fracture of right distal radius Qualifiers: Encounter type: subsequent encounter Fracture morphology: other fracture Fracture healing: with routine healing Qualified Code(s): S52.591D - Other fractures of lower end of right radius, subsequent encounter for closed fracture with routine healing Condition: Stable Prescriptions: No Action loratadine 10 mg tablet 10 mg PO DAILY tramadol [Ultram] 50 mg tablet 50 mg PO DAILY hydrochlorothiazide 25 mg tablet 25 mg PO DAILY sumatriptan succinate [Imitrex] 100 mg tablet 100 mg PO Q2H PRN (Reason: Migraine Headache) lisinopril 5 mg tablet 5 mg PO DAILY levothyroxine 50 mcg capsule 50 mcg PO DAILY ibuprofen 100 mg tablet 200 mg PO QID PRN (Reason: Pain) Hold Instructions: Resume on 02/10/22. diclofenac sodium 1 % gel 2 gm TOPICAL QID PRN (Reason: Pain) Iodosorb 0.9 % gel 40 g topical Q3D Qty: 40 0RF (DME) silicone border foam dressing See Rx Instructions .Route .MEDSUPPLY Qty: 1 0RF Rx Instructions: As directed mupirocin 2 % ointment 1 applic topical BID 14 Days Qty: 22 2RF (DME) silicone foam border, kerlex, tape See Rx Instructions .Route .MEDSUPPLY Qty: 1 0RF Rx Instructions: As directed by HOME meloxicam 7.5 mg tablet 7.5 mg PO DAILY Hold Instructions: Resume on 02/09/22. mupirocin 2 % ointment 1 applic topical BID Qty: 15 0RF (DME) AFO to the Left See Rx Instructions .Route .MEDSUPPLY Qty: 1 0RF Rx Instructions: As directed [facility] [place] hydrocodone-acetaminophen 5-325 mg tablet 1 tab PO Q6H PRN (Reason: pain) Qty: 28 0RF Discharge Orders: Discharge ED (Routine); Ordered 12/13/23 Ordered By: Candelaria Willis Referrals: Francheska Centeno MD [Primary Care Provider] - Patient Instructions: Wrist Fracture in Adults (ED) Activity Restrictions/Additional Instructions: As we discussed stay in your splint at all times. Follow up with Dr. Vazquez as scheduled on Saturday. Coding Level of Care Code ED Desizing Machine Operator for Andrea Brandon
--- NOTE | 2023-12-13 13:47 | XR_ITS ---
WS: [id number] Examination: XR wrist RT min 3V* [id number] Reason for Exam: reported fracture/injury Date: 12/13/2023 Comparison: None. Findings: There is osteopenia. There is dorsal soft tissue swelling. There is a distal radial fracture seen dorsally and laterally involving the radial styloid. On the la teral film there is mild dorsal displacement. The fracture extends into the radial carpal joint. On the lateral film there are small bony fragments seen posterior to the proximal row of the carpal b ones. Lateral wrist degenerative changes noted particular at the first carpal metacarpal joint as well as t he joint between the scaphoid and trapezium XR/XR wrist RT min 3V* [id number] Impression: There is a minimally displaced distal radial fracture seen.
--- NOTE | 2023-12-13 13:47 | XR_ITS ---
WS: [id number] Examination: XR forearm RT 2V [id number] Reason for Exam: reported fracture Date: 12/13/2023 Comparison: None. Findings: The bone density is diminished. There is a nondisplaced fracture involving the radial styloid. This does involve the radiocarpal join t. Lateral degenerative changes at the wrist are noted. There is widening of the scapholunate interval. XR/XR forearm RT 2V [id number] Impression: There is a nondisplaced fracture involving the radial styloid into the radiocar pal joint. I suspect there is widening of the scapholunate interval..
[2023-12-13] MEDS: HYDROcodone-acetaminophen 5-325 mg Tablet 1 TAB PO (14:28)
[2023-12-13 14:29] VITALS: BP 107/65; PULSE 71; O2SAT 95
== END 2023-12-13 14:30 | disposition home or self-care (01) ==
PROVIDERS: Emergency Provider Physician Assistant; PCP Plastic Surgery
DX: S52.511D Displaced fracture of right radial styloid process, subsequent encounter for closed fracture with routine healing (principal); W01.0XXD Fall on same level from slipping, tripping and stumbling without subsequent striking against object, subsequent encounter
CPT/HCPCS: 73090; 73110; 99283

== ENCOUNTER → 2023-12-17 08:52 | Outpatient (BNVA) | payer OTHER, SELFPAY | PROVIDERS: PCP Plastic Surgery; Visit Provider Podiatrist Foot & Ankle Surgery | DX: R26.89 Other abnormalities of gait and mobility (principal); M20.41 Other hammer toe(s) (acquired), right foot; M20.42 Other hammer toe(s) (acquired), left foot; L84 Corns and callosities; L60.3 Nail dystrophy; I73.9 Peripheral vascular disease, unspecified; R09.89 Other specified symptoms and signs involving the circulatory and respiratory systems; L97.421 Non-pressure chronic ulcer of left heel and midfoot limited to breakdown of skin | CPT/HCPCS: 11056; 11721; 73110; 99213 ==

== ENCOUNTER 2023-12-17 15:10 | Outpatient (CLI) | payer OTHER, SELFPAY | END 2023-12-17 15:11 | disposition home or self-care (01) | LOC: SPT 15:11 | PROVIDERS: PCP Plastic Surgery; Visit Provider Student in an Organized Health Care Education/Training Program | DX: Z46.89 Encounter for fitting and adjustment of other specified devices (principal); S52.591D Other fractures of lower end of right radius, subsequent encounter for closed fracture with routine healing; X58.XXXD Exposure to other specified factors, subsequent encounter | CPT/HCPCS: 97760; L3982 ==

== ENCOUNTER → 2023-12-31 13:05 | Outpatient (BNVA) | payer OTHER, SELFPAY | PROVIDERS: PCP Plastic Surgery; Visit Provider Student in an Organized Health Care Education/Training Program | DX: S52.591D Other fractures of lower end of right radius, subsequent encounter for closed fracture with routine healing (principal); M25.511 Pain in right shoulder; X58.XXXD Exposure to other specified factors, subsequent encounter | CPT/HCPCS: 29075; 73030; 73110; 99213 ==

== ENCOUNTER → 2024-01-21 09:57 | Outpatient (BNVA) | payer OTHER, SELFPAY | PROVIDERS: PCP Plastic Surgery; Visit Provider Student in an Organized Health Care Education/Training Program | DX: S52.591D Other fractures of lower end of right radius, subsequent encounter for closed fracture with routine healing (principal); X58.XXXD Exposure to other specified factors, subsequent encounter; R03.0 Elevated blood-pressure reading, without diagnosis of hypertension | CPT/HCPCS: 73110 ==

== ENCOUNTER 2024-01-21 11:04 | Outpatient (CLI) | payer OTHER, SELFPAY | END 2024-01-21 11:05 | disposition home or self-care (01) | LOC: SOT 11:11 | PROVIDERS: PCP Plastic Surgery; Visit Provider Student in an Organized Health Care Education/Training Program | DX: I73.9 Peripheral vascular disease, unspecified (principal); L60.3 Nail dystrophy; L84 Corns and callosities; L97.422 Non-pressure chronic ulcer of left heel and midfoot with fat layer exposed; R26.89 Other abnormalities of gait and mobility; M20.41 Other hammer toe(s) (acquired), right foot; M20.42 Other hammer toe(s) (acquired), left foot; R09.89 Other specified symptoms and signs involving the circulatory and respiratory systems | CPT/HCPCS: 11042; 11055; 11721; 97760; L3906 ==

== ENCOUNTER → 2024-01-23 14:14 | Outpatient (BNVA) | payer OTHER, SELFPAY | PROVIDERS: PCP Plastic Surgery; Visit Provider Thoracic Surgery (Cardiothoracic Vascular Surgery) | DX: I96 Gangrene, not elsewhere classified (principal); L97.421 Non-pressure chronic ulcer of left heel and midfoot limited to breakdown of skin | CPT/HCPCS: 97597; 99213 ==

== ENCOUNTER → 2024-01-30 10:54 | Outpatient (BNVA) | payer OTHER, SELFPAY | PROVIDERS: PCP Plastic Surgery; Visit Provider Thoracic Surgery (Cardiothoracic Vascular Surgery) | DX: I96 Gangrene, not elsewhere classified (principal); T81.31XD Disruption of external operation (surgical) wound, not elsewhere classified, subsequent encounter; Y83.8 Other surgical procedures as the cause of abnormal reaction of the patient, or of later complication, without mention of misadventure at the time of the procedure | CPT/HCPCS: 97597 ==

== ENCOUNTER 2024-02-06 12:50 | Outpatient (CLI) | payer OTHER, SELFPAY ==
--- NOTE | 2024-02-06 12:54 | XRR_ITS ---
PROCEDURE INFORMATION: Exam: XR Left Foot Exam date and time: 02/06/2024 1:00 PM Age: 78 years old Clinical indication: Condition or disease; Other: Open wound; Prior surgery; Surgery date: 6+ months; Surgery type: Year ago cleansed infection on left foot; Patient HX: HX of breast cancer; Additional info: Wound left calcaneus S/P graft TECHNIQUE: Imaging protocol: Radiologic exam of the left foot. Views: 3 or more views. COMPARISON: CR XR foot LT min 3V* [id number] 02/26/2022 9:43 AM FINDINGS: Bones/joints: Unchanged and lateral deviation of the 3rd through 5th toes. No fracture or dislocation. No evidence of focal osteopenia, periosteal reaction or cortical destruction to suggest osteomyelitis. Old healed fracture deformity of the 4th and 5th metatarsal diaphysis noted. Sclerotic focus re-identified in the posterior calcaneus. Slight irregularity of the overlying soft tissues is present, likely representing area of graft. Incidental note is made of small plantar and dorsal calcaneal enthesophyte. No subcutaneous emphysema identified. Soft tissues: See Bones/joints finding. XR/XR foot LT min 3V* [id number] IMPRESSION: No acute osseous abnormality.
[2024-02-06 13:26] LABS: Basophils # 0.1 10^3/uL (0.0-0.1); Basophils % 0.9 %; Eosinophils # 0.2 10^3/uL (0.0-0.8); Eosinophils % 2.5 %; Hematocrit 39.7 % (36-47); Lymphocytes # 2.5 10^3/uL (0.8-4.8); Lymphocytes % 30.8 %; Mean Corpuscular HGB Conc 33.2 g/dL (30-55); Mean Corpuscular Hemoglobin 31.5 pg (27-33); Mean Corpuscular Volume 94.7 fl (85-98); Mean Platelet Volume 9.7 fL (7.4-10.4); Monocytes # 0.8 10^3/uL (0.2-0.9); Monocytes % 9.8 %; Neutrophils # 4.54 10^3/uL (1.8-7.7); Neutrophils % 55.8 %; Nucleated Red Blood Cells % 0 %; Platelet Count 359 10^3/cmm (157-399); Red Blood Count 4.19 10^6/uL (3.85-5.65); Red Cell Distribution Width 13.4 % (12.1-15.1); White Blood Count 8.14 10^3/uL (3.29-11.43)
[2024-02-06 13:43] LABS: Anion Gap 12.7 (5-19); Blood Urea Nitrogen 18 mg/dL (8-23); Calcium 8.9 mg/dL (8.5-10.5); Carbon Dioxide 27 mmol/L (22-29); Chloride 100 mmol/L (98-107); Glucose 133 mg/dL (65-115); Osmolality Calculated 284 mOsm/kg (285-295); Potassium 4.7 mmol/L (3.5-5.1); Sodium 135 mmol/L (136-145)
== END 2024-02-06 12:51 | disposition home or self-care (01) ==
LOC: LAB 12:51
PROVIDERS: PCP Plastic Surgery; Visit Provider Thoracic Surgery (Cardiothoracic Vascular Surgery)
DX: L97.422 Non-pressure chronic ulcer of left heel and midfoot with fat layer exposed (principal); I96 Gangrene, not elsewhere classified
CPT/HCPCS: 36415; 73630; 80048; 85025; 86140; 97597

== ENCOUNTER 2024-02-12 16:54 | Outpatient (CLI) | payer OTHER, SELFPAY ==
--- NOTE | 2024-02-12 17:00 | MR_ITS ---
WS: [id number] MRI LEFT ANKLE WITH AND WITHOUT CONTRAST. COMPARISON: 05/27/2018 Multiplanar, multisequence imaging is performed with and without contrast. MultiHance 16 mL injected. After the injection patient became short of breath and rapid response was called and patient was tra nsported to the emergency department. No postcontrast imaging obtained. Advanced degenerative changes are noted at the ankle joint. Deformity of the distal tibia with some r esidual edema sharply from an old healed fracture. Advanced degenerative changes at the tibiotalar jose int with subchondral cystic disease and loss of the normal joint space. Loss of the normal cartilage along the talar dome with a few small subchondral cysts. Along the plantar calcaneal surface is a very low signal 11 x 10 mm nodule. This may be a foreign bod y. This may be packing material from a prior infection. No marrow edema within the calcaneus. Soft ti ssue thickening along the plantar surface of the calcaneus. No definite area of edema to suggest an a ctive acute ulcer can be identified. Normal interosseous membrane. Fluid surrounding the anterior and posterior talofibular ligaments but they do not appear to be intact. Partial tear of the deltoid ligament. Mild thickening and convex jordy earance of the Achilles tendon. Additional fluid in the distal Achilles tendon from a partial tear. F lexor and extensor tendons are intact. Tendons are normal size and signal. Additional advanced osteoa rthritic changes in the midfoot. MR/MR ankle LT wo/w con [id number] IMPRESSION: 1. Advanced degenerative changes involving the tibiotalar joint with loss of c artilage and subchondral cystic disease. 2. No ulcer is identified or edema along the calcaneus. There is soft tissue t hickening but no corresponding edema. 3. Achilles tendinopathy. Achilles is thickened measuring 11 mm. Additional pa rtial tear at the insertion site. 4. Partial tear of the deltoid ligament.
[2024-02-12] MEDS: gadobenate dimeglumine 20 mL vial 16 ML IV (17:35)
== END 2024-02-12 16:55 | disposition home or self-care (01) ==
LOC: RAD 16:55
PROVIDERS: PCP Plastic Surgery; Visit Provider Thoracic Surgery (Cardiothoracic Vascular Surgery)
DX: M19.072 Primary osteoarthritis, left ankle and foot (principal); M76.62 Achilles tendinitis, left leg; S86.012A Strain of left Achilles tendon, initial encounter; M85.672 Other cyst of bone, left ankle and foot; X58.XXXA Exposure to other specified factors, initial encounter
CPT/HCPCS: 73723

== ENCOUNTER 2024-02-12 17:54 | Emergency (ER) | payer OTHER, SELFPAY ==
[2024-02-12 17:56] VITALS: BP 151/78; PULSE 88; RESP 22; O2SAT 96
--- NOTE | 2024-02-12 17:57 | XRR_ITS ---
PROCEDURE INFORMATION: Exam: XR Chest Exam date and time: 02/12/2024 6:40 PM Age: 78 years old Clinical indication: Dyspnea; Additional info: Shortness of breath, mri contrast reaction TECHNIQUE: Imaging protocol: Radiologic exam of the chest. Views: 1 view. COMPARISON: CR XR shoulder RT min 2V* [id number] 12/31/2023 1:18 PM FINDINGS: Lungs: Mild pulmonary vascular congestion. Pleural spaces: Unremarkable. No pleural effusion. No pneumothorax. Heart/Mediastinum: Cardiomegaly. Vasculature: Aorta is dilated, consider correlation with CT scan. 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 Bones/joints: Unremarkable. XR/XR chest 1V portable [id number] IMPRESSION: 1. Aorta is dilated, consider correlation with CT scan. 2. Cardiomegaly. 3. Mild pulmonary vascular congestion. 4. 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
--- NOTE | 2024-02-12 18:05 | ED_ITS ---
HPI - SOB/Dyspnea General: Chief Complaint: Shortness of Breath/Dyspnea Stated Complaint: Reaction to contrast Time Seen by Provider: 02/12/24 17:55 History of Present Illness: HPI Narrative: 78-year-old female with a history of james ymyalgia rheumatica, hypertension, hypothyroidism and anxiety who presents to the emergency room from MRI. She became extremely short of breath just after contrast dye was administered. She has had this several times in the past and never had a reaction she says. She also reports that she was quite anxious. Some chest tightness. No altered mental status. No focal motor deficits. No abdominal pain. No nausea or vomi ting. Related Data Home Medications Medication Instructions Recorded Confirmed hydrochlorothiazide 25 mg tablet 25 mg PO DAILY 05/11/19 01/21/24 ibuprofen 100 mg tablet 200 mg PO QID PRN Pain 05/11/19 01/21/24 levothyroxine 50 mcg capsule 50 mcg PO DAILY 05/11/19 01/21/24 lisinopril 5 mg tablet 5 mg PO DAILY 05/11/19 01/21/24 loratadine 10 mg tablet 10 mg PO DAILY 05/11/19 01/21/24 sumatriptan succinate 100 mg 100 mg PO Q2H PRN Migraine Headache 05/11/19 01/21/24 tablet (Imitrex) tramadol 50 mg tablet (Ultram) 50 mg PO DAILY 05/11/19 01/21/24 diclofenac sodium 1 % topical gel 2 gm topical QID PRN Pain 08/18/19 01/21/24 Previous Rx's Medication Instructions Recorded AFO to the Left #1 ea 01/31/22 silicone border foam dressing #1 ea 07/18/22 silicone foam border, kerlex, tape #1 ea 01/07/23 mupirocin 2 % topical ointment 1 applic topical BID #15 grams 12/17/23 right fast form #1 ea 12/17/23 hydrocodone 5 mg-acetaminophen 325 1 tab PO Q6H PRN pain 7 days #28 12/31/23 mg tablet tabs Custom Volar Splint #1 ea 01/21/24 Allergies Allergy/AdvReac Type Severity Reaction Status Date / Time alendronate sodium AdvReac unknown Verified 01/21/24 10:08 [From Fosamax] prochlorperazine AdvReac unknown Verified 01/21/24 10:08 [From Compazine] Review of Systems Narrative: Constitutional symptoms: Negative except as documented in HPI. Skin symptoms: Negative except as documented in HPI. Eye symptoms: Negative except as documented in HPI. ENMT symptoms: Negative except as documented in HPI. Respiratory symptoms: Negative except as documented in HPI. Cardiovascular symptoms: Negative except as documented in HPI. Gastrointestinal symptoms: Negative except as documented in HPI. Genitourinary symptoms: Negative except as documented in HPI. Musculoskeletal symptoms: Negative except as documented in HPI. Neurologic symptoms: Negative except as documented in HPI. Psychiatric symptoms: Negative except as documented in HPI. Endocrine symptoms: Negative except as documented in HPI. PFSH ED PFSH: Medical History Symptomatic cholelithiasis Positive SAMANTHA (antinuclear antibody) Immunization counseling Polymyalgia rheumatica High risk medication use Encounter for screening for other viral diseases Surgical History History of hysterectomy History of thyroidectomy Family History Son Hypertension Brother Diabetes Father Heart disease Mother Cancer Sister Cancer Social History Smoking and tobacco/nicotine status: former use of tobacco/nicotine Alcohol intake: never Substance/Drug Use: never Physical Exam Narrative: EXAM NARRATIVE: General: Alert, no acute distress. Skin: Warm, dry. Head: Normocephalic, atraumatic. Neck: Supple, trachea midline. Eye: Extraocular movements are intact. Ears, nose, mouth and throat: mucosa moist. Cardiovascular: Regular, Normal peripheral perfusion. Respiratory: Patient is somewhat tachypneic. There are some mild wheeze. Gastrointestinal: Soft, Nontender, Non distended Musculoskeletal: Normal ROM, no deformity. Neurological: Alert and oriented, No focal neurological deficit observed. Psychiatric: Cooperative, appropriate mood & affect. Course Vital Signs: Vital signs: Vital Signs Temperature 97.7 F 02/12/24 18:17 Pulse Rate 85 02/12/24 18:32 Respiratory Rate 19 H 02/12/24 18:32 Blood Pressure 150/90 02/12/24 18:32 Pulse Oximetry 95 02/12/24 18:32 Oxygen Delivery Me thod Room Air 11/06/24 18:32 Oxygen Flow Rate 2 02/12/24 17:56 MDM - SOB/Dyspnea Medical Decision Making Medical decision making: Differential diagnosis including but not limited to and based on the above HPI, review of systems and physical exam: In a patient with complaints of allergic reaction have concern for anaphylaxis, medication reactions and viral reactions. Orders placed to evaluate differential diagnosis based on the above differential, HPI and physical exam Chest x-ray: No acute process. No infiltrate. No pneumothorax. This was reviewed and interpreted by myself the ER physician. Reexamination: Patient says she feels much improved after medications. No shortness of breath. No oxygen requirements. Assessment and plan: Allergic reaction ?Difficult to say if this was anxiety or an allergic reaction but could have some mild wheeze and was very tachypneic. She feels much better after IV Solu- Medrol, IV Pepcid and IV Benadryl. - Discharged home - Discussed plan with patient. Answered any questions. - Evaluation and treatment of this problem were appropriate in the emergency setting. XR interpretation done by ED provider, pending radiology final review Discharge Plan Discharge Patient Disposition: Home Clinical Impression: Allergic reaction Condition: Stable Prescriptions: No Action loratadine 10 mg tablet 10 mg PO DAILY tramadol [Ultram] 50 mg tablet 50 mg PO DAILY hydrochlorothiazide 25 mg tablet 25 mg PO DAILY sumatriptan succinate [Imitrex] 100 mg tablet 100 mg PO Q2H PRN (Reason: Migraine Headache) lisinopril 5 mg tablet 5 mg PO DAILY levothyroxine 50 mcg capsule 50 mcg PO DAILY ibuprofen 100 mg tablet 200 mg PO QID PRN (Reason: Pain) Hold Instructions: Resume on 02/10/22. diclofenac sodium 1 % gel 2 gm TOPICAL QID PRN (Reason: Pain) (DME) silicone border foam dressing See Rx Instructions .Route .MEDSUPPLY Qty: 1 0RF Rx Instructions: As directed (DME) silicone foam border, kerlex, tape See Rx Instructions .Route .MEDSUPPLY Qty: 1 0RF Rx Instructions: As directed by HOME mupirocin 2 % ointment 1 applic topical BID Qty: 15 0RF Rx Instructions: apply to wound TID and as needed with dressing changes, cover with band-aid (DME) right fast form See Rx Instructions .Route .MEDSUPPLY Qty: 1 0RF Rx Instructions: As directed hydrocodone-acetaminophen 5-325 mg tablet 1 tab PO Q6H PRN (Reason: pain) 7 Days Qty: 28 0RF (DME) Custom Volar Splint See Rx Instructions .Route .MEDSUPPLY Qty: 1 0RF Rx Instructions: As directed (DME) AFO to the Left See Rx Instructions .Route .MEDSUPPLY Qty: 1 0RF Rx Instructions: As directed [facility] and [place] Discharge Orders: Discharge ED (Routine); Ordered 02/12/24 Ordered By: Tory Juarez Referrals: Francheska Centeno MD [Primary Care Provider] - Discharge Diet: Usual diet Discharge Activity: Increase activity as tolerated Patient Instructions: General Allergic Reaction (ED), Opioid Safety, Pain Management Activity Restrictions/Additional Instructions: Thank you for choosing [facility] for your healthcare needs today. Please realize this is an emergency room and that we are providing you with a medical screening exam and this may not be complete and all inclusive of all the testing and or work up that you may need to determine your ailment or severity of your illness. You have been screened and evaluated and felt safe for discharge. Health conditions do change or evolve sometimes and as such it is important that you follow up with your Primary Doctor to be re checked, 3-5 days is a general good time frame for follow up. You are always welcome to return to the ED for re assessment if your symptoms are worsening or you have new concerns Coding Level of Care Code ED School Speech Therapist for Andrea Brandon
[2024-02-12] MEDS: methylPREDNISolone sod succ 125 mg/2 mL INJ IVP (18:07)
[2024-02-12] MEDS: diphenhydrAMINE 50 mg/mL SDV 1mL 25 MG IVP (18:09)
[2024-02-12] MEDS: famotidine 20 mg/2 mL INJ 40 MG IVP (18:11)
[2024-02-12 18:17] VITALS: BP 135/88; PULSE 90; RESP 24; TEMP 36.5; O2SAT 95
[2024-02-12 18:32] VITALS: BP 150/90; PULSE 85; RESP 19; O2SAT 95
[2024-02-12 19:06] VITALS: BP 140/57; PULSE 89; O2SAT 96
== END 2024-02-12 19:13 | disposition home or self-care (01) ==
PROVIDERS: Emergency Provider Emergency Medicine; PCP Plastic Surgery
DX: T78.40XA Allergy, unspecified, initial encounter (principal); T50.8X5A Adverse effect of diagnostic agents, initial encounter; X58.XXXA Exposure to other specified factors, initial encounter; Z87.891 Personal history of nicotine dependence
CPT/HCPCS: 71045; 96374; 96375; 99284; J1200; J2919; J3490

== ENCOUNTER → 2024-02-20 08:20 | Outpatient (BNVA) | payer OTHER, SELFPAY | PROVIDERS: PCP Plastic Surgery; Visit Provider Thoracic Surgery (Cardiothoracic Vascular Surgery) | DX: I96 Gangrene, not elsewhere classified (principal); L97.422 Non-pressure chronic ulcer of left heel and midfoot with fat layer exposed | CPT/HCPCS: 97597 ==

== ENCOUNTER → 2024-03-03 13:43 | Outpatient (BNVA) | payer OTHER, SELFPAY | PROVIDERS: PCP Plastic Surgery; Visit Provider Student in an Organized Health Care Education/Training Program | DX: S52.591D Other fractures of lower end of right radius, subsequent encounter for closed fracture with routine healing (principal); X58.XXXD Exposure to other specified factors, subsequent encounter | CPT/HCPCS: 73110; 99213 ==

== ENCOUNTER → 2024-03-12 08:30 | Outpatient (BNVA) | payer OTHER, SELFPAY | PROVIDERS: PCP Plastic Surgery; Visit Provider Thoracic Surgery (Cardiothoracic Vascular Surgery) | DX: I96 Gangrene, not elsewhere classified (principal); L97.422 Non-pressure chronic ulcer of left heel and midfoot with fat layer exposed | CPT/HCPCS: 11042 ==

== ENCOUNTER → 2024-03-24 13:14 | Outpatient (BNVA) | payer OTHER, SELFPAY | PROVIDERS: PCP Plastic Surgery; Visit Provider Physician Assistant | DX: S52.591D Other fractures of lower end of right radius, subsequent encounter for closed fracture with routine healing (principal); W01.0XXD Fall on same level from slipping, tripping and stumbling without subsequent striking against object, subsequent encounter | CPT/HCPCS: 73110; 99213 ==

== ENCOUNTER → 2024-04-15 13:39 | Outpatient (BNVA) | payer OTHER, SELFPAY | PROVIDERS: PCP Plastic Surgery | DX: L97.422 Non-pressure chronic ulcer of left heel and midfoot with fat layer exposed (principal) | CPT/HCPCS: 87070; 87176; 87205 ==

== ENCOUNTER 2024-12-07 05:00 | Outpatient (RCR) | payer MEDICARE, OTHER, SELFPAY | END 2025-01-05 23:59 | disposition home or self-care (01) | LOC: WPT 05:00 | PROVIDERS: Visit Provider Plastic Surgery | DX: Z47.89 Encounter for other orthopedic aftercare (principal) | CPT/HCPCS: 97162 ==

== ENCOUNTER → 2025-02-03 12:49 | Outpatient (BNVA) | payer MEDICARE, OTHER, SELFPAY | PROVIDERS: Visit Provider Student in an Organized Health Care Education/Training Program | DX: M65.332 Trigger finger, left middle finger (principal); M65.342 Trigger finger, left ring finger | CPT/HCPCS: 73130; 99214 ==

== ENCOUNTER 2025-02-12 09:01 | Day surgery (SDC) | payer MEDICARE, OTHER, SELFPAY ==
[2025-02-12] VITALS (7 sets, daily range): BP systolic 122–144; BP diastolic 67–82; PULSE 57–66; RESP 14–18; TEMP 36.4–37.1; O2SAT 94–96; BMI 26.6
--- NOTE | 2025-02-12 09:39 | W.PM.OPSUD ---
Surgery/Procedure H&P Update DATE OF PROCEDURE: February 12, 2025 DATE H&P PERFORMED: 02/03/25 H&P UPDATE INFORMATION: I have reviewed H&P completed within last 30 days, I have examined patient prior to procedure and No changes to prior documentation PREOP DIAGNOSIS: Left middle finger trigger, left ring finger trigger PRIMARY INDICATION FOR PROCEDURE: Left middle finger trigger, left ring finger trigger PLANNED PROCEDURE: Operation Date: 02/12/25 10:20 Proposed Procedures p Tenotomy Hand/Wrist Trigger Finger Release(Left) - Yves Vazquez DO
--- NOTE | 2025-02-12 09:43 | ANES.PREANE2 ---
Pre-Anesthetic Assessment Height/Weight: Height 5 ft 9 in Weight 180 lb Temp Pulse Resp BP Pulse Ox O2 Del Method 97.5 F L 63 18 144/80 94 Room Air 02/12/25 09:18 02/12/25 09:18 02/12/25 09:18 02/12/25 09:18 02/12/25 09:18 02/12/25 09:18 Preop Diagnosis: Left middle finger trigger, left ring finger trigger Operation Date: 02/12/25 10:20 Proposed Procedures p Tenotomy Hand/Wrist Trigger Finger Release(Left) - Yves Taylor, DO Was Beta Heather taken within 24 hours: N/A Was Clonidine taken within 24 hours: N/A Last intake: Intake Last Liquid Date 02/11/25 Last Liquid Time 20:00 Last Solid Date 02/11/25 Last Solid Time 17:00 Social No alcohol and No tobacco Exam alert, oriented x 3, clear to auscultation bilaterally and regular rate & rhythm Airway Submandibular: within normal limits Cervical ROM: within normal limits Mallampati: Class I Dentition: full Anesthetic Plan Other: No prior issues with anesthesia NPO since yesterday evening History of hypertension on hydrochlorothiazide and lisinopril Hypothyroidism on Synthroid Prednisone 5 mg daily History of splenectomy Patient brought in labs from an outside facility. NA 141, K+ 3.4 Polymyalgia rheumatica Plan for MAC anesthesia with local via surgeon Medications/Allergies Home Medications ?Medication ?Instructions ?Recorded ?Confirmed ?Last Taken ?Type hydrochlorothiazide 25 mg tablet 25 mg PO DAILY 05/11/19 02/11/25 02/11/25 History ibuprofen 100 mg tablet 200 mg PO QID PRN Pain 05/11/19 02/11/25 02/11/25 History Held on 02/05/22. Instructions: Resume on 02/10/22. levothyroxine 50 mcg capsule 50 mcg PO DAILY 05/11/19 02/11/25 02/11/25 History lisinopril 5 mg tablet 5 mg PO DAILY 05/11/19 02/11/25 02/11/25 History loratadine 10 mg tablet 10 mg PO DAILY 05/11/19 02/11/25 02/11/25 History sumatriptan succinate 100 mg 25 mg PO Q2H PRN Migraine Headache 05/11/19 02/11/25 02/10/25 History tablet (Imitrex) tramadol 50 mg tablet (Ultram) 50 mg PO DAILY 05/11/19 02/11/25 02/11/25 History diclofenac sodium 1 % topical gel 2 gm topical QID PRN Pain 08/18/19 02/11/25 Unknown History AFO to the Left #1 ea 01/31/22 02/03/25 Unknown Rx silicone border foam dressing #1 ea 07/18/22 02/03/25 Unknown Rx silicone foam border, kerlex, tape #1 ea 01/07/23 02/03/25 Unknown Rx right fast form #1 ea 12/17/23 02/03/25 Unknown Rx Custom Volar Splint #1 ea 01/21/24 02/03/25 Unknown Rx right wrist cock up splint #1 ea 03/24/24 02/03/25 Unknown Rx prednisone 20 mg tablet 20 mg PO DAILY 02/03/25 02/11/25 02/11/25 History tramadol 50 mg tablet 50 mg PO Q6H PRN pain 5 days #20 02/12/25 Unknown Rx tabs Allergies Allergy/AdvReac Type Severity Reaction Status Date / Time gadobenic acid Allergy Mild ALGY-Wheezi Verified 02/11/25 09:24 ng alendronate sodium (From AdvReac unknown Verified 02/11/25 09:24 Fosamax) prochlorperazine (From AdvReac unknown Verified 02/11/25 09:24 Compazine) [facility] Anesthesia Medical History (Updated 02/07/25 @ 22:34 by Yves Vazquez DO) Symptomatic cholelithiasis Positive SAMANTHA (antinuclear antibody) Immunization counseling Polymyalgia rheumatica High risk medication use Encounter for screening for other viral diseases Surgical History History of hysterectomy History of thyroidectomy Family History Son Hypertension Brother Diabetes Father Heart disease Mother Cancer Sister Cancer Social History Smoking and tobacco/nicotine status: never used tobacco/nicotine Alcohol intake: never Substance/Drug Use: never Data Anesthesia Cardiac Studies: Echocardiogram 11/02/22
[2025-02-12] MEDS: acetaminophen 1,000 MG/100 ML PIGGYBACK 400 MG IV (10:07)
[2025-02-12] MEDS: ceFAZolin 2,000 MG in sodium chloride 0.9% (plus) 50 ML 100 MG IV (12:06)
[2025-02-12] MEDS: ROPivacaine 0.5% SDV 30 mL 25 MG INJECTION (12:40)
--- NOTE | 2025-02-12 12:50 | P.BOP_ITS ---
Date of Procedure: 02/12/2025 Surgeon: Yves Vazquez DO Data Processing Mechanic(s): None Procedure(s) performed: Left middle finger trigger release Left ring finger trigger release Findings of the procedure(s): Underwent procedure as planned without issues or complications taken to recovery in stable condition. Estimated blood loss: 3 mL Specimen(s) removed: None Post-operative diagnosis: Left middle finger trigger, left ring finger trigger
--- NOTE | 2025-02-12 12:50 | P.OP_ITS ---
Operative Report Date of procedure: February 12, 2025 Surgeon: Yves Vazquez DO Procedure: Preoperative diagnosis: Left middle finger trigger Left ring finger trigger Post-op diagnosis: Same Procedure done: Left middle finger?trigger?release Left ring finger trigger release Surgeon: Yves Vazquez DO Estimated blood loss: 3cc Tourniquet time 8mins Complications: None Condition: stable Disposition: same day Brief History: Patient's been seen and worked up in the outpatient setting and findings consistent with preoperative diagnosis of Left middle finger?trigger and left ring finger trigger.? pt is failed conservative treatment.? Continues to have mechanical locking and catching.? Severe pain as well.? We talked about treatment options nonoperative versus operative intervention.? ?Patient understands the risk benefits complication alternatives of surgical nonsurgical treatment options.? Understanding risks with surgery she elects proceed with surgical intervention.? Consent obtained in the preop area.? Here today to proceed with surgical intervention.? All questions answered. Procedure: Patient was seen and evaluated in the preoperative holding area.? Consent was reviewed and signed with patient.? Seen evaluated by Anesthesia Department.? Once cleared for surgery was brought back to the operative suite.? Placed in supine position on the OR table all bony prominences well-padded patient properly secured to the bed.? Patient's Left arm was then placed to the armboard.? A nonsterile tourniquet applied to the Left upper arm.? Patient's Left upper extremity was then prepped and draped in standard orthopedic fashion.? Final timeout performed.? Patient received appropriate preoperative antibiotics. Esmarch tourniquet was used exsanguinate the Left upper extremity tourniquet insufflated to 250 mmHg. Under sterile aseptic technique local digital block was performed to the Left middle finger.? Once appropriately anesthetized a standard oblique incision was made centering over the A1 ishaan following patient's flexor crease.? Sharp scalpel incision was made only through skin and then switched to Littler dissection scissors and spread longitudinally directly over the flexor tendon sheath.? I then mobilized both radially and ulnarly and Kasdan retractors were used and placed by my sales assistant entertainment and media to protect neurovascular bundle.? Next I visualized the A1 ishaan and this was incised with a scalpel.? I then switched to dissection scissors and?released the A1 ishaan both proximally as well as distally to its entirety.? Significant tendon sheath fluid was noted consistent with inflammation.? Mild fraying of the flexor tendons noted but no tear.? At this point I utilized a rag nail and pulled the tendons FDS and FDP out of the incision and no?triggering was noted.? Thorough irrigation was performed I was able to range the finger and no triggering noted. I then turned attention towards the left ring finger. Under sterile aseptic technique local digital block was performed to the Left ri ng finger.? Once appropriately anesthetized a standard oblique incision was made centering over the A1 ishaan following patient's flexor crease.? Sharp scalpel incision was made only through skin and then switched to Littler dissection scissors and spread longitudinally directly over the flexor tendon sheath.? I then mobilized both radially and ulnarly and Kasdan retractors were used and placed by my sales assistant entertainment and media to protect neurovascular bundle.? Next I visualized the A1 ishaan and this was incised with a scalpel.? I then switched to dissection scissors and?released the A1 ishaan both proximally as well as distally to its entirety.? Significant tendon sheath fluid was noted consistent with inflammation.? Mild fraying of the flexor tendons noted but no tear.? At this point I utilized a rag nail and pulled the tendons FDS and FDP out of the incision and no?triggering was noted.? I then had anesthesia wake up the patient and patient was able to actively flex and extend with no?triggering.? This point thorough irrigation was performed.? Tourniquet deflated hemostasis satisfactory with bipolar.? I then subsequently closed the incision with interrupted nylon suture.? Xeroform 4 x 4's, Kerlix and an Bharath wrap was applied for a bulky soft dressing.? Patient was then subsequently awakened from anesthesia and taken to PACU in stable condition tolerated procedure without issues. Disposition: Patient taken back in stable condition recovering well.? Patient will receive appropriate discharge instruction as well as pain medication postoperatively.? Patient to follow-up with ortho in the office in 2 weeks for repeat evaluation and incision check.? Patient understands that any questions or concerns and contact the office.? All questions answered.
--- NOTE | 2025-02-12 13:34 | ANE.PACU2 ---
Inpatient post-anesthesia follow up: Airway intact: Yes Vital signs: Temperature 98.6 F Pulse Rate 66 Respiratory Rate 16 Blood Pressure 122/67 Pulse Oximetry 96 Oxygen Delivery Me thod Room Air Oxygen Flow Rate Fraction of Inspir ed Oxygen Hydration adequate: Yes Nausea and vomiting: No Pain level: 1 Mental status: Baseline
== END 2025-02-12 13:56 | disposition home or self-care (01) ==
PROVIDERS: PCP Family Medicine; Visit Provider Student in an Organized Health Care Education/Training Program
PROC: (CPT 26055; principal; 2025-02-12 10:10)
DX: M65.332 Trigger finger, left middle finger (principal); M65.342 Trigger finger, left ring finger; I10 Essential (primary) hypertension; E03.9 Hypothyroidism, unspecified; M35.3 Polymyalgia rheumatica
CPT/HCPCS: 26055 ×2; 36415; J0131; J0690; J2704; J2795; J3010; J7030; J9999

== ENCOUNTER → 2025-02-24 13:28 | Outpatient (BNVA) | payer MEDICARE, OTHER, SELFPAY | PROVIDERS: PCP Family Medicine; Visit Provider Podiatrist Foot & Ankle Surgery | DX: I73.9 Peripheral vascular disease, unspecified (principal); L60.3 Nail dystrophy; L84 Corns and callosities; R26.89 Other abnormalities of gait and mobility; M20.41 Other hammer toe(s) (acquired), right foot; M20.42 Other hammer toe(s) (acquired), left foot; R09.89 Other specified symptoms and signs involving the circulatory and respiratory systems | CPT/HCPCS: 11055; 11721 ==